=== PATIENT | female | born 1980 | race Caucasian/White ===

== ENCOUNTER 2018-10-08 23:40 | Emergency (ER) | payer BC ==
[~2018-10-08] VITALS: Ht 172.7 cm; Wt 63.0 kg
[2018-10-08] MEDS ORDERED: SPIR100T5 PO (23:49)
[2018-10-08] MEDS ORDERED: ESCI20TA PO (23:49)
[2018-10-08] MEDS ORDERED: NALTREXONE (23:49)
[2018-10-09] MEDS ORDERED: CEFAZOLIN 1 G VIAL IM ONE (00:15)
[2018-10-09] MEDS ORDERED: HYDROCODONE/APAP 10-325 MG TABLET PO ONE (00:15)
[2018-10-09] MEDS ORDERED: LIDOCAINE 1%-EPI 1:100,000 20 ML VIAL TP ONE (00:15)
[2018-10-09] MEDS ORDERED: ONDANSETRON ODT 4 MG TAB.RAPDIS SL ONE (00:15)
[2018-10-09] MEDS ORDERED: SODIUM BICARBONATE 4.2 % (NEUT) 5 ML VIAL TP ONE (00:15)
[2018-10-09] MEDS ORDERED: HYDROCODONE/APAP 10-325 MG TABLET ONE (00:17)
[2018-10-09] MEDS ORDERED: ONDANSETRON ODT 4 MG TAB.RAPDIS ONE ×2 (00:17→00:19)
[2018-10-09] MEDS ORDERED: CEFAZOLIN 1 G VIAL ONE (00:45)
--- NOTE | 2018-10-09 00:54 | NUR ---
Patient discharged to home in stable conditon. Written and verbal after care instructions given. Patient verbalizes understanding of instructions.
== END 2018-10-09 00:56 | disposition home or self-care (01) ==
LOC: ER 23:41
DX: S01.81XA Laceration without foreign body of other part of head, initial encounter (principal); S60.212A Contusion of left wrist, initial encounter; S60.211A Contusion of right wrist, initial encounter; Z88.0 Allergy status to penicillin; Z79.899 Other long term (current) drug therapy; W01.198A Fall on same level from slipping, tripping and stumbling with subsequent striking against other object, initial encounter; Y93.89 Activity, other specified; Y92.89 Other specified places as the place of occurrence of the external cause; Y99.8 Other external cause status
CPT/HCPCS: 12052; 96372; 99284; J0690; J3490 ×2; A4217; A4663; Q0162